=== PATIENT | female | born 1955 | race Caucasian/White ===

== ENCOUNTER 2017-10-06 10:54 | Emergency (ER) | payer OTHER ==
[2017-10-06] MEDS ORDERED: Famotidine 20 MG TAB ONE (12:24)
[2017-10-06] MEDS ORDERED: Dexamethasone 10 MG/ML VIAL ONE (12:24)
[2017-10-06] MEDS ORDERED: diphenhydrAMINE 50 MG/ML VIAL ONE (12:37)
[2017-10-06 12:47] LABS: Hemoglobin 11.7 g/dL (12.0-16.0); Mean Corpuscular HGB CONC 32.7 g/dL (32.0-36.0); Mean Corpuscular Hemoglobin 26.4 pg (27.0-31.0); Mean Corpuscular Volume 80.7 fl (81.0-99.0); Mean Platelet Volume 6.9 fL (7.4-10.4); Platelet Count 310 thou/uL (130-400); RBC Distribution Width 13.6 % (11.5-14.5); Red Blood Cell (RBC) Count 4.41 mill/uL (4.20-5.40)
[2017-10-06 13:14] LABS: ALT (SGPT) 19 U/L (8-55); AST (SGOT) 22 U/L (5-34); Albumin 4.6 g/dL (3.4-4.8); Alkaline Phosphatase 92 U/L (40-150); Anion Gap 15 mmol/L (10-20); BUN (Urea Nitrogen) 20 mg/dL (9.8-20.1); Bilirubin, Total 0.8 mg/dL (0.2-1.2); CRP (Inflammatory) 0.91 mg/dL (= or < 0.5); Calc. Creatinine Clearance 0 mL/min (70-130); Calcium 9.4 mg/dL (7.8-10.44); Carbon Dioxide 26 mmol/L (23-31); Chloride 101 mmol/L (98-107); Estimated GFR-MDRD 72; Globulin 3.3 g/dL (2.4-3.5); Glucose 102 mg/dL (80-115); Potassium 3.9 mmol/L (3.5-5.1); Protein, Total 7.9 g/dL (6.0-8.3); Sodium 138 mmol/L (136-145)
[2017-10-06] MEDS ORDERED: Cyclobenzaprine 10 MG TAB ONE (13:14)
[2017-10-06 13:28] LABS: Band 3 % (5-11); Eosinophils 1 % (0-10); Lymphocytes 16 % (21-51); MDiff Complete? YES; Monocytes 6 % (0-10); Neutrophil 73 % (42-75); Ovalocytes SLIGHT = 2-5 cells (100X) (0-1/hpf); PLT Morphology Comment Appears Adequate; Polychromasia SLIGHT = 2-3 cells (100X) (0-2/hpf); Reactive Lymphocytes 1 % (0-10)
--- NOTE | 2017-10-06 14:30 | RAD ---
CHEST TWO VIEWS: HISTORY: Right upper back pain. The patient started Fosamax yesterday. COMPARISON: None. FINDINGS: Two views of the chest show the cardiomediastinal silhouette at the upper limits of normal in size. Increased interstitial markings are present. There is no evidence of consolidation, mass, or pleural effusion. Degenerative changes are seen in the spine. There are wedge compression deformities in t he thoracic spine. IMPRESSION: No evidence of acute cardiopulmonary disease. POS: [facility]
== END 2017-10-06 14:20 | disposition home or self-care (01) ==
LOC: ERS 10:54
DX: S29.012A Strain of muscle and tendon of back wall of thorax, initial encounter (principal); I10 Essential (primary) hypertension; E78.5 Hyperlipidemia, unspecified; X58.XXXA Exposure to other specified factors, initial encounter
CPT/HCPCS: 71046; 80053; 85025; 85652; 86140; 93005; 96374; 96375; J1100; J1200

== ENCOUNTER 2024-01-05 08:06 | Observation (INO) | payer MEDICARE ==
[2024-01-05 08:43] LABS: #Basophils 0.04 10x3/uL (0.0-0.2); %Basophils 0.4 % (0.0-1.0); %Eosinophils 2.4 % (0.0-10.0); %Lymphocytes 22.8 % (21.0-51.0); %Monocytes 6.4 % (0.0-10.0); %Neutrophils 67.7 % (42.0-75.0); Hematocrit 43.2 % (36.0-47.0); Hemoglobin 14.9 g/dL (12.0-16.0); Mean Corpuscular HGB CONC 34.5 g/dL (32.0-36.0); Mean Corpuscular Hemoglobin 30.1 pg (27.0-31.0); Mean Corpuscular Volume 87.3 fL (78.0-98.0); Mean Platelet Volume 9.4 fL (7.4-10.4); Platelet Count 287 10x3/uL (130-400); Red Blood Cell (RBC) Count 4.95 mill/uL (4.20-5.40)
[2024-01-05] MEDS ORDERED: Aspirin Chewable 81 MG TAB ONE (08:47)
[2024-01-05 09:22] LABS: Troponin I Less than 0.010 ng/mL (< 0.028)
[2024-01-05 09:28] LABS: ALT (SGPT) 33 U/L (8-55); AST (SGOT) 35 U/L (5-34); Alkaline Phosphatase 89 U/L (40-110); Anion Gap 14 mmol/L (10-20); BUN (Urea Nitrogen) 10 mg/dL (9.8-20.1); Bilirubin, Total 0.9 mg/dL (0.2-1.2); Calc. Creatinine Clearance 0 mL/min (70-130); Calcium 9.3 mg/dL (7.8-10.44); Carbon Dioxide 26 mmol/L (23-31); Chloride 102 mmol/L (98-107); Estimated GFR 83; Globulin 3.4 g/dL (2.4-3.5); Glucose 119 mg/dL (80-115); Potassium 3.6 mmol/L (3.5-5.1); Protein, Total 7.4 g/dL (5.8-8.1); Sodium 138 mmol/L (136-145)
[2024-01-05] MEDS ORDERED: Ondansetron PF 4 MG/2 ML Vial IVP PRN (11:46)
[2024-01-05 12:26] LABS: Troponin I Less than 0.010 ng/mL (< 0.028)
[2024-01-05 15:09] LABS: Troponin I Less than 0.010 ng/mL (< 0.028)
[2024-01-05 18:08] VITALS: BMI 32.5
[2024-01-05] MEDS: Acetaminophen 325 MG TAB PO SCH (18:16)
[2024-01-05] MEDS: Atorvastatin Calcium 40 MG TAB PO SCH (20:40)
[2024-01-06 04:04] LABS: #Basophils 0.03 10x3/uL (0.0-0.2); %Basophils 0.5 % (0.0-1.0); %Eosinophils 3.3 % (0.0-10.0); %Lymphocytes 39.4 % (21.0-51.0); %Monocytes 8.9 % (0.0-10.0); %Neutrophils 47.7 % (42.0-75.0); Hematocrit 41.1 % (36.0-47.0); Hemoglobin 13.6 g/dL (12.0-16.0); Mean Corpuscular HGB CONC 33.1 g/dL (32.0-36.0); Mean Corpuscular Hemoglobin 29.5 pg (27.0-31.0); Mean Corpuscular Volume 89.2 fL (78.0-98.0); Mean Platelet Volume 9.7 fL (7.4-10.4); Platelet Count 276 10x3/uL (130-400); Red Blood Cell (RBC) Count 4.61 mill/uL (4.20-5.40)
[2024-01-06 04:25] LABS: Anion Gap 11 mmol/L (10-20); BUN (Urea Nitrogen) 10 mg/dL (9.8-20.1); Calc. Creatinine Clearance 95 mL/min (70-130); Calcium 8.9 mg/dL (7.8-10.44); Carbon Dioxide 29 mmol/L (23-31); Chloride 103 mmol/L (98-107); Estimated GFR 88; Glucose 119 mg/dL (80-115); Sodium 139 mmol/L (136-145)
[2024-01-06] MEDS: Enoxaparin 40 MG (0.4 mL) SYRINGE SC SCH (09:02)
[2024-01-06] MEDS: Aspirin 81 mg Enteric Coated Tablet PO SCH (09:02)
[2024-01-06] MEDS ORDERED: Regadenoson 0.4 MG/5 ML SYRINGE ONE (10:45)
[2024-01-06 12:49] VITALS: BP 139/67; TEMP 97.9
== END 2024-01-06 14:45 | disposition home or self-care (01) ==
LOC: ERS 08:06 → ERHOLD 11:40 → 2SW 17:55
PROVIDERS: ADMIT Internal Medicine; ATTEND Internal Medicine
DX: R07.89 Other chest pain (principal); I10 Essential (primary) hypertension; E78.5 Hyperlipidemia, unspecified; Z90.49 Acquired absence of other specified parts of digestive tract; Z98.890 Other specified postprocedural states; Z91.018 Allergy to other foods; Z88.5 Allergy status to narcotic agent; Z88.7 Allergy status to serum and vaccine; Z91.09 Other allergy status, other than to drugs and biological substances; Z79.82 Long term (current) use of aspirin; Z79.899 Other long term (current) drug therapy
CPT/HCPCS: 71045; 78452; 80048; 80053; 84484 ×2; 85025 ×2; 93005; 93017; 96372; 99285; A9502; G0378 ×3; J1650; J2785 ×2; 36415; A9503

== ENCOUNTER 2024-02-07 05:28 | Inpatient (IN) | payer MEDICARE ==
[2024-02-02 09:49] VITALS: BMI 32.9
[2024-02-07] MEDS ORDERED: Sodium Chloride 0.9% 100 ML ONE ×3 (06:24→08:03)
[2024-02-07] MEDS ORDERED: Vancomycin (BATCH) 1.5 GM/300 ML BAG ONE (06:24)
[2024-02-07] MEDS ORDERED: Tranexamic Acid 1,000 MG/10 ML VIAL ONE (06:24)
[2024-02-07] MEDS ORDERED: Midazolam HCl 2 mg/2 ml Vial ONE (06:36)
[2024-02-07] MEDS ORDERED: fentaNYL 50 mcg/mL 1 mL Vial ONE (06:36)
[2024-02-07] MEDS ORDERED: CEFAZOLIN 2 GM VIAL ONE (07:02)
[2024-02-07] MEDS ORDERED: Ropivacaine 0.2% HCl/PF 20 ML ONE (07:11)
[2024-02-07] MEDS ORDERED: Lidocaine 1% (PF) 30 ML VIAL ONE (07:11)
[2024-02-07] MEDS ORDERED: Ropivacaine 0.5% HCl/PF (150 MG/30 ML VIAL) ONE (07:11)
[2024-02-07] MEDS ORDERED: fentaNYL 50 mcg/mL 1 mL Vial SLOW IVP PRN (07:19)
[2024-02-07] MEDS ORDERED: fentaNYL PF 100 MCG/2 ML SYRINGE ONE (07:21)
[2024-02-07] MEDS ORDERED: Rocuronium Bromide 10 MG/ML (10ML VIAL) ONE (07:22)
[2024-02-07] MEDS ORDERED: Lidocaine 1% PF 5 ML VIAL ONE (07:22)
[2024-02-07] MEDS ORDERED: PROPOFOL 20 ML ONE (07:22)
[2024-02-07] MEDS ORDERED: Promethazine HCl 25 MG/ML VIAL IM PRN (07:30)
[2024-02-07] MEDS ORDERED: Zolpidem Tartrate 5 MG TAB PO PRN ×2 (07:30→10:00)
[2024-02-07] MEDS ORDERED: Ropivacaine 0.2% 550 ML 550 ML NERVE BLCK SCH (07:30)
[2024-02-07] MEDS ORDERED: Phenylephrine 10 MG/ML VIAL ONE (07:49)
[2024-02-07] MEDS ORDERED: Dexamethasone 20 MG/5 ML VIAL ONE (08:03)
[2024-02-07] MEDS ORDERED: ePHEDrine Sulfate 50 MG/10 ML VIAL ONE (08:34)
[2024-02-07] MEDS ORDERED: Ondansetron PF 4 MG/2 ML Vial ONE (09:41)
[2024-02-07] MEDS ORDERED: SUGAMMADEX SODIUM 200 MG/2 ML VIAL ONE (09:41)
[2024-02-07] MEDS ORDERED: Ondansetron PF 4 MG/2 ML Vial IVP PRN (10:00)
[2024-02-07] MEDS ORDERED: Milk Of Magnesia 30 ML UDCUP PO PRN (10:00)
[2024-02-07] MEDS ORDERED: Ondansetron ODT 4 MG TAB PO PRN (10:00)
[2024-02-07] MEDS ORDERED: Bisacodyl 10 MG SUPP PR PRN (10:00)
[2024-02-07] MEDS ORDERED: diphenhydrAMINE 50 MG CAP PO PRN (10:00)
[2024-02-07] MEDS: Acetaminophen 325 MG TAB PO SCH (11:54)
[2024-02-07] MEDS: Dextrose 5 %-0.45 % NaCl 1,000 ML IV SCH (11:55)
[2024-02-07] MEDS: Ketorolac Tromethamine 30 MG (1 mL) VIAL IVP SCH (13:05)
[2024-02-07] MEDS: CEFAZOLIN 2 GM in Sodium Chloride 0.9% 100 ML IVPB SCH (15:58)
[2024-02-07] MEDS: Famotidine 20 MG TAB PO SCH (21:06)
[2024-02-07] MEDS ORDERED: Ipratropium/Albuterol 3 ML NEB NEB PRN (21:53)
[2024-02-07] MEDS ORDERED: Lorazepam 2 MG/ML VIAL SLOW IVP PRN (21:59)
[2024-02-07 22:51] LABS: ALT (SGPT) 20 U/L (8-55); AST (SGOT) 34 U/L (5-34); Albumin 3.2 g/dL (3.4-4.8); Alkaline Phosphatase 56 U/L (40-110); Anion Gap 17 mmol/L (10-20); BUN (Urea Nitrogen) 16 mg/dL (9.8-20.1); Bilirubin, Total 0.4 mg/dL (0.2-1.2); Calc. Creatinine Clearance 65 mL/min (70-130); Carbon Dioxide 22 mmol/L (23-31); Chloride 99 mmol/L (98-107); Estimated GFR 58; Globulin 3.2 g/dL (2.4-3.5); Glucose 133 mg/dL (80-115); Potassium 3.6 mmol/L (3.5-5.1); Protein, Total 6.4 g/dL (5.8-8.1); Sodium 134 mmol/L (136-145)
[2024-02-07 22:55] LABS: Troponin I Less than 0.010 ng/mL (< 0.028)
[2024-02-07 22:59] LABS: #Basophils Less than 0.03 10x3/uL (0.0-0.2); #Eosinphils Less than 0.03 10x3/uL (0.0-0.7); %Basophils 0.1 % (0.0-1.0); %Lymphocytes 9.5 % (21.0-51.0); %Monocytes 6.2 % (0.0-10.0); %Neutrophils 83.9 % (42.0-75.0); Hematocrit 31.2 % (36.0-47.0); Hemoglobin 10.8 g/dL (12.0-16.0); Mean Corpuscular HGB CONC 34.6 g/dL (32.0-36.0); Mean Corpuscular Volume 89.7 fL (78.0-98.0); Mean Platelet Volume 9.6 fL (7.4-10.4); Platelet Count 276 10x3/uL (130-400); Red Blood Cell (RBC) Count 3.48 mill/uL (4.20-5.40)
[2024-02-07 23:30] LABS: SARS-CoV-2 E Target Negative; SARS-CoV-2 N2 Target Negative; SARS-CoV-2 NAA Rapid Test Not Detected (NotDetected); SARS-CoV-2 RdRP gene Negative
[2024-02-08 06:02] LABS: Hematocrit 29.8 % (36.0-47.0); Hemoglobin 10.1 g/dL (12.0-16.0); Mean Corpuscular HGB CONC 33.9 g/dL (32.0-36.0); Mean Corpuscular Hemoglobin 30.1 pg (27.0-31.0); Mean Platelet Volume 9.5 fL (7.4-10.4); Platelet Count 249 10x3/uL (130-400); RBC Distribution Width 12.9 % (11.5-14.5); Red Blood Cell (RBC) Count 3.35 mill/uL (4.20-5.40)
[2024-02-08 06:16] LABS: Anion Gap 13 mmol/L (10-20); BUN (Urea Nitrogen) 17 mg/dL (9.8-20.1); Calc. Creatinine Clearance 84 mL/min (70-130); Calcium 8.7 mg/dL (7.8-10.44); Carbon Dioxide 24 mmol/L (23-31); Chloride 99 mmol/L (98-107); Estimated GFR 79; Glucose 116 mg/dL (80-115); Potassium 3.1 mmol/L (3.5-5.1); Sodium 133 mmol/L (136-145)
[2024-02-08] MEDS: Potassium Chloride 10 MEQ TAB PO SCH (08:22)
[2024-02-08] MEDS: cefTRIAXone\\ROCEPHIN 1 GM in Sodium Chloride 0.9% 100 ML IVPB SCH (11:23)
[2024-02-08] MEDS: Azithromycin 500 MG in Sodium Chloride 0.9% 250 ML 250 ML IVPB SCH (11:24)
[2024-02-08] MEDS: Acetaminophen 500 MG TAB PO PRN (12:29)
[2024-02-08] MEDS: Ketorolac Tromethamine 10 MG TAB PO SCH (13:19)
[2024-02-08] MEDS: Ondansetron PF 4 MG/2 ML Vial IVP PRN (14:50)
[2024-02-09 05:41] LABS: #Basophils 0.03 10x3/uL (0.0-0.2); %Basophils 0.4 % (0.0-1.0); %Eosinophils 2.3 % (0.0-10.0); %Lymphocytes 22.3 % (21.0-51.0); %Monocytes 7.3 % (0.0-10.0); %Neutrophils 67.3 % (42.0-75.0); Hematocrit 28.3 % (36.0-47.0); Hemoglobin 9.7 g/dL (12.0-16.0); Mean Corpuscular HGB CONC 34.3 g/dL (32.0-36.0); Mean Corpuscular Hemoglobin 30.2 pg (27.0-31.0); Mean Corpuscular Volume 88.2 fL (78.0-98.0); Mean Platelet Volume 9.6 fL (7.4-10.4); Platelet Count 243 10x3/uL (130-400); RBC Distribution Width 13.3 % (11.5-14.5); Red Blood Cell (RBC) Count 3.21 mill/uL (4.20-5.40)
[2024-02-09 05:54] LABS: Anion Gap 9 mmol/L (10-20); BUN (Urea Nitrogen) 15 mg/dL (9.8-20.1); Calc. Creatinine Clearance 88 mL/min (70-130); Calcium 8.3 mg/dL (7.8-10.44); Carbon Dioxide 27 mmol/L (23-31); Chloride 101 mmol/L (98-107); Estimated GFR 82; Glucose 105 mg/dL (80-115); Potassium 3.1 mmol/L (3.5-5.1); Sodium 134 mmol/L (136-145)
[2024-02-09 08:52] VITALS: TEMP 97.6
[2024-02-09 12:11] VITALS: BP 128/80
== END 2024-02-09 13:55 | disposition home or self-care (01) | DRG 483 ==
LOC: SDC 05:28 → SURG A 11:13 → OBSVTOIN 02-08 07:35
PROVIDERS: ADMIT Orthopaedic Surgery; ATTEND Internal Medicine
PROC: 0RRJ0JZ Replacement of Right Shoulder Joint with Synthetic Substitute, Open Approach (ICD-10-PCS; principal; 2024-02-08)
PROC: 0LS30ZZ Reposition Right Upper Arm Tendon, Open Approach (ICD-10-PCS; 2024-02-08)
DX: S42.291A Other displaced fracture of upper end of right humerus, initial encounter for closed fracture (principal); J18.9 Pneumonia, unspecified organism; J98.11 Atelectasis; S42.141A Displaced fracture of glenoid cavity of scapula, right shoulder, initial encounter for closed fracture; E87.70 Fluid overload, unspecified; F10.90 Alcohol use, unspecified, uncomplicated; I10 Essential (primary) hypertension; Z90.49 Acquired absence of other specified parts of digestive tract; Z88.5 Allergy status to narcotic agent; Z88.7 Allergy status to serum and vaccine
CPT/HCPCS: 36415; 71045; 80048; 80053; 83880; 84484; 85025; 85027; 93970; A4306; C1713; C1776; J0456; J0696; J1100; J1885; J2001; J2250; J2371; J2405; J2704; J2795; J3010; J3370; J7050; U0002

== ENCOUNTER 2024-02-15 13:22 | Outpatient (CLI) | payer MEDICARE | END 2024-02-15 13:23 | disposition home or self-care (01) | LOC: BICRAD 13:22 | PROVIDERS: ATTEND Family Medicine | DX: J18.9 Pneumonia, unspecified organism (principal); J45.909 Unspecified asthma, uncomplicated; R06.02 Shortness of breath | CPT/HCPCS: 71046 ==